=== PATIENT | male | born 1975 | race Caucasian/White ===

== ENCOUNTER 2016-03-15 12:25 | Emergency (ER) | payer MEDICAID, OTHER ==
[~2016-03-15] VITALS: Ht 172.7 cm; Wt 79.5 kg
[~2016-03-15 12:25] MED LIST: INSU100V19
[2016-03-15 12:34] VITALS: Ht 172.7 cm; Wt 79.5 kg
[2016-03-15] MEDS ORDERED: SOD CHLORIDE 0.9% 1,000 ML IV STA (13:29)
[2016-03-15] MEDS ORDERED: LIDOCAINE/MYLANTA 40 ML BTL PO ONE (13:30)
--- NOTE | 2016-03-15 14:02 | RADRPT ---
PROCEDURE: XR Chest. CLINICAL INDICATION: chest pain, abdominal pain TECHNIQUE: Single frontal view of the chest was obtained COMPARISON: 03/15/2009 FINDINGS: The heart and mediastinum are within normal limits. The lungs are clear. There is no pleural effusion or pneumothorax. RPTAT: AA IMPRESSION: No acute disease. .Esteban Johnston MD, MD Date Time Electronically viewed and signed by .Esteban Johnston MD, on 03/15/2016 14:01 .S/
[2016-03-15] MEDS: FAMOTIDINE 20 MG INJ IV STA ×2 (14:03→14:04)
[2016-03-15 14:24] LABS: ADD UMIC YES; URINE BILIRUBIN (Dip) NEGATIVE (NEGATIVE); URINE BLOOD (Dip) TRACE (NEGATIVE); URINE COLOR LT. YELLOW (YELLOW); URINE GLUCOSE (Dip) >=1000 % (NEGATIVE); URINE KETONES (Dip) NEGATIVE (NEGATIVE); URINE LEUKOCYTE ESTERASE (Dip) NEGATIVE (NEGATIVE); URINE NITRITE (Dip) NEGATIVE (NEGATIVE); URINE TOTAL PROTEIN (Dip) NEGATIVE (NEGATIVE); URINE UROBILINOGEN (Dip) 0.2 E.U./dL (0.1-1.0)
[2016-03-15 14:39] LABS: POTASSIUM 4.1 mmol/L (3.5-5.1)
[2016-03-15 14:41] LABS: BARBITURATES Negative (NEGATIVE); BENZODIAZEPINES Negative (NEGATIVE); CANNABINOIDS Negative (NEGATIVE); COCAINE Negative (NEGATIVE); OPIATES Negative (NEGATIVE)
[2016-03-15 14:41] LABS: BILIRUBIN,INDIRECT 0.6 mg/dl (0-1.1); BILIRUBIN,TOTAL 0.6 mg/dl (0.2-1.3); CREATININE 1.31 mg/dl (0.61-1.24)
[2016-03-15 14:42] LABS: ALBUMIN/GLOBULIN RATIO 1.21; CALCIUM 9.7 mg/dl (8.4-10.2); TOTAL PROTEIN 7.3 g/dl (6.1-8.1)
[2016-03-15 14:55] LABS: BASOPHILS % 0.6 % (0.0-2.0); EOSINOPHILS # 0.5 10^3/ul (0.0-0.5); EOSINOPHILS % 6.7 % (0.0-7.0); HEMATOCRIT 42.5 % (42.0-52.0); HEMOGLOBIN 14.6 g/dl (14.0-18.0); LYMPHOCYTES # 2.7 10^3/ul (0.8-2.9); MEAN CORPUSCULAR HEMOGLOBIN 30.4 pg (29.0-33.0); MEAN CORPUSCULAR HGB CONC 34.4 g/dl (32.0-37.0); MEAN CORPUSCULAR VOLUME 88.2 fl (82.0-101.0); MEAN PLATELET VOLUME 9.1 fl (7.4-10.4); MONOCYTE # 0.3 10^3/ul (0.3-0.9); MONOCYTES % 4.1 % (0.0-11.0); NEUTROPHIL # 4.1 10^3/ul (1.6-7.5); NEUTROPHILS % 53.6 % (39.0-77.0); PLATELET COUNT 186 10^3/UL (140-440); RED BLOOD COUNT 4.82 10^6/ul (4.70-6.10); RED CELL DISTRIBUTION WIDTH 12.8 % (11.5-14.5); UNCORRECTED WBC 7.7 10^3/ul (4.8-10.8); WHITE BLOOD COUNT 7.7 10^3/ul (4.8-10.8)
[2016-03-15 15:09] LABS: CONDITION 1
[2016-03-15] MEDS ORDERED: FAMO-18 PO (16:00)
[2016-03-15 16:05] VITALS: BP 112/59; PULSE 78; RESP 18; TEMP 98.5
[2016-03-15 16:20] LABS: SQUAMOUS EPITHELIAL CELL,UR OCCASIONAL; URINE RBCS 0-2 /HPF (0)
--- NOTE | 2016-03-15 21:57 | ERD ---
ER Documentation Chief Complaint Date/Time DATE: 03/15/16 TIME: 21:47 Chief Complaint HIGH BLOOD SUGAR YESTERDAY. HPI 40-year-old male with a past medical history of diabetes presents to the ED complaining of high blood sugar and was seen at [facility] yesterday. States that he was transferred over to [facility] but was not happy with the care, left AMA with an IV line in his left forearm, wanted to come here to [facility]. States that he started to have slight chest pain that started 2 days ago. States that he is unsure if this is his heartburn. Reports that he has a history of gastritis. Denies any shortness of breath, wheezing, fever, chills, cough, neck stiffness, abdominal pain, diarrhea. Reports normal bowel movements. ROS All systems reviewed and are negative except as per history of present illness. Medications Home Meds Active Scripts Famotidine* (Pepcid*) 20 Mg Tablet, 20 MG PO BID for 4 Days, #30 TAB Prov:WADE JETER PA-C 03/15/16 Reported Medications Insulin Glargine,Hum.rec.anlog (Lantus) 100 U/Ml Vial 03/15/09 Allergies Allergies: Coded Allergies: No Known Drug Allergy (Verified Allergy, Unknown, 03/16/09) PMhx/Soc History of Surgery: No Anesthesia Reaction: No Hx Neurological Disorder: No Hx Respiratory Disorders: No Hx Cardiac Disorders: No Hx Miscellaneous Medical Probl: Yes (DM) Hx Alcohol Use: Yes (PREVIOUS USER) Hx Substance Use: No Hx Tobacco Use: No Physical Exam Vitals Vital Signs Date Time Temp Pulse Resp B/P Pulse Ox O2 Delivery O2 Flow Rate FiO2 03/15/16 16:05 98.5 78 18 112/59 98 03/15/16 12:34 98.1 112 18 102/64 98 Physical Exam Const: [id number], well-nourished. In no acute distress. Head: Atraumatic, normocephalic Eyes: Normal Conjunctiva without injection. No purulent discharge. ENT: Normal external ear, nose. Moist oropharynx without tonsillar exudates. Non -erythematous pharynx. Uvula midline. No drooling. No trismus. Neck: No cervical midline tenderness. Full range of motion. No meningismus. No cervical lymphadenopathy. No JVD. Resp: Clear to auscultation bilaterally. No wheezing, rhonchi, rales, or crackles. No accessory muscle use. No retractions. Cardio: Regular rate and rhythm. No murmurs, rubs or gallops. Abd: Soft, nontender to palpation, non distended. Normal bowel sounds. No palpable masses. No rebound tenderness. No guarding. Negative McBurney's point. Negative psoas sign. Negative obturator sign. : See exam in MDM. Skin: No petechiae or rashes Back: No midline tenderness. No CVA tenderness. Ext: No cyanosis, or edema. Neur: Awake and alert. Normal gait. Normal coordination. Psych: Normal Mood and Affect Result Diagram: 03/15/16 1400 03/15/16 1400 Results 24 hrs Laboratory Tests Test 03/15/16 12:32 03/15/16 13:50 03/15/16 14:00 03/15/16 15:45 Bedside Glucose 317mg/dL 307mg/dL Urine Amphetamines Screen Negative Urine Barbiturates Negative Urine Benzodiazepines Screen Negative Urine Bilirubin NEGATIVE Urine Cannabinoids Negative Urine Clarity CLEAR Urine Cocaine Screen Negative Urine Color LT. YELLOW Urine Glucose >=1000% Urine Hemoglobin TRACE Urine Ketones NEGATIVE Urine Leukocyte Esterase NEGATIVE Urine Microscopic RBC 0-2/HPF Urine Microscopic WBC 0-2/HPF Urine Nitrite NEGATIVE Urine Opiates Screen Negative Urine Specific [place] 1.010 Urine Squamous Epithelial Cells OCCASIONAL Urine Total Protein NEGATIVE Urine Urobilinogen 0.2 E.U./dL Urine pH 6.0 Alanine Aminotransferase (ALT/SGPT) 58IU/L Albumin 4.0g/dl Albumin/Globulin Ratio 1.21 Alkaline Phosphatase 230IU/L Anion Gap 14 Aspartate Amino Transf (AST/SGOT) 54IU/L Basophils # 0.010^3/ul Basophils % 0.6% Blood Urea Nitrogen 37mg/dl Calcium Level 9.7mg/dl Carbon Dioxide Level 32mmol/L Chloride Level 99mmol/L Creatinine 1.31mg/dl Direct Bilirubin 0.00mg/dl Eosinophils # 0.510^3/ul Eosinophils % 6.7% Globulin 3.30g/dl Glucose Level 299mg/dl Hematocrit 42.5% Hemoglobin 14.6g/dl Indirect Bilirubin 0.6mg/dl Lipase 78U/L Lymphocytes # 2.710^3/ul Lymphocytes % 35.0% Mean Corpuscular Hemoglobin 30.4pg Mean Corpuscular Hemoglobin Concent 34.4g/dl Mean Corpuscular Volume 88.2fl Mean Platelet Volume 9.1fl Monocytes # 0.310^3/ul Monocytes % 4.1% Neutrophils # 4.110^3/ul Neutrophils % 53.6% Nucleated Red Blood Cells # 0.010^3/ul Nucleated Red Blood Cells % 0.0/100WBC Platelet Count 89239^3/UL Potassium Level 4.1mmol/L Red Blood Count 4.8210^6/ul Red Cell Distribution Width 12.8% Sodium Level 141mmol/L Total Bilirubin 0.6mg/dl Total Protein 7.3g/dl Troponin I < 0.010ng/ml White Blood Count 7.710^3/ul Current Medications Medications (Trade) Dose Ordered Sig/Luc Route PRN Reason Start Time Stop Time Status Last Admin Dose Admin Sodium Chloride (NS) 1,000 ml @ 1,000 mls/hr Q1H STAT IV 03/15/16 13:29 03/15/16 14:28 DC 03/15/16 14:04 Famotidine (Pepcid Iv) 20 mg ONCE STAT IV 03/15/16 13:29 03/15/16 13:37 DC 03/15/16 14:04 Miscellaneous Medication (Gi Cocktail (2)) 40 ml ONCE ONCE PO 03/15/16 13:30 03/15/16 13:37 DC 03/15/16 14:04 Procedures/MDM 40-year-old male with a past medical history of diabetes presents the ED complaining of high blood sugar, chest pain. Patient is afebrile and nontoxic- appearing. At this time a CBC, CMP, lipase, UA, 1 L of normal saline was ordered to further treat and evaluate patient. Patient reports that his symptoms have improved after the 1 L of normal saline, famotidine 20 mg IV, GI cocktail. CBC: No leukocytosis. No e/o of systemic infection. No e/o anemia. CMP: No e/o severe acidosis, alkalosis, renal failure, diabetic ketoacidosis, liver disease Lipase within normal limits. Urine: No leukocyte esterase, no nitrites, no hematuria. No ketones noted. Troponin < 0.01 Negative Urine Drug Screen - no IV drug use after leaving [facility] with IV line. PROCEDURE: XR Chest. CLINICAL INDICATION: chest pain, abdominal pain TECHNIQUE: Single frontal view of the chest was obtained COMPARISON: 03/15/2009 FINDINGS: The heart and mediastinum are within normal limits. The lungs are clear. There is no pleural effusion or pneumothorax. RPTAT: AA IMPRESSION: No acute disease. EKG reviewed and interpreted by Dr. Bernal Rate/Rhythm: [103 bpm, Normal Sinus Rhythm] No ectopy, no ST elevations, normal axis. QRS, ST, T-waves: [No changes consistent w/ acute ischemia] Impression: [No evidence of ischemia or arrhythmia] Patient's blood sugar was noted to be 317 upon arrival, 299 after receiving fluids and 307 after eating here in the ED. No ketones noted in the urine. Bicarb and anion gap is within normal limits. Low suspicion for DKA, HHS, or other emergent conditions. Patient's chest sensation is likely due to his gastritis and heartburn. Low suspicion for acute myocardial infarction, pneumothorax, WPW, pericarditis, Brugada's Syndrome, pneumonia, cardiac tamponade, pulmonary embolism, AAA, aortic dissection, Boerhaave's syndrome, cardiac dysrhythmias,meningitis, intracranial bleed, seizure, stroke, TIA or other emergent conditions. Discharge medications: Famotidine Follow up with primary care physician in 1-2 days. Instructed patient to return to the ED sooner for any worsening symptoms. Patient's questions were answered. Patient understood and agreed with discharge plan. Patient discharged stable. Departure Diagnosis: Primary Impression: Hyperglycemia Additional Impression: Heartburn Condition: Stable Patient Instructions: Hyperglycemia (High Blood Sugar), What Is Acid Reflux? Referrals: [facility] YOU HAVE RECEIVED A MEDICAL SCREENING EXAM AND THE RESULTS INDICATE THAT YOU DO NOT HAVE A CONDITION THAT REQUIRES URGENT TREATMENT IN THE EMERGENCY DEPARTMENT. FURTHER EVALUATION AND TREATMENT OF YOUR CONDITION CAN WAIT UNTIL YOU ARE SEEN IN YOUR DOCTORS OFFICE WITHIN THE NEXT 1-2 DAYS. IT IS YOUR RESPONSIBILITY TO MAKE AN APPOINTMENT FOR FOLOW-UP CARE. IF YOU HAVE A PRIMARY DOCTOR --you should call your primary doctor and schedule an appointment IF YOU DO NOT HAVE A PRIMARY DOCTOR YOU CAN CALL OUR PHYSICIAN REFERRAL HOTLINE AT IF YOU CAN NOT AFFORD TO SEE A PHYSICIAN YOU CAN CHOSE FROM THE FOLLOWING [facility] [address] [facility] [address] [facility] [address] [facility] [address] [facility] [address] [facility]. [facility] [address] [facility]. [facility] YOU HAVE RECEIVED A MEDICAL SCREENING EXAM AND THE RESULTS INDICATE THAT YOU DO NOT HAVE A CONDITION THAT REQUIRES URGENT TREATMENT IN THE EMERGENCY DEPARTMENT. FURTHER EVALUATION AND TREATMENT OF YOUR CONDITION CAN WAIT UNTIL YOU ARE SEEN IN YOUR DOCTORS OFFICE WITHIN THE NEXT 1-2 DAYS. IT IS YOUR RESPONSIBILITY TO MAKE AN APPOINTMENT FOR FOLOW-UP CARE. IF YOU HAVE A PRIMARY DOCTOR --you should call your primary doctor and schedule and appointment IF YOU DO NOT HAVE A PRIMARY DOCTOR YOU CAN CALL OUR PHYSICIAN REFERRAL HOTLINE AT . IF YOU CAN NOT AFFORD TO SEE A PHYSICIAN YOU CAN CHOSE FROM THE FOLLOWING [facility] INSTITUTIONS: [facility] [address] [place] [address] [facility] [address] [place] [address] [facility] + [facility] [address] [place] [address] [facility] URGENT CARE/SPECIALTIES Additional Instructions: FOLLOW UP WITH YOUR PRIMARY CARE PHYSICIAN TOMORROW. Return to this facility if you are not improving as expected. WADE JETER PA-C Mar 15, 2016 21:56
== END 2016-03-15 16:06 | disposition home or self-care (01) ==
LOC: FTE 12:25
DX: E11.65 Type 2 diabetes mellitus with hyperglycemia (principal); R12 Heartburn; Z79.4 Long term (current) use of insulin
CPT/HCPCS: 36415; 71010; 80053; 80307; 81001; 82962; 83690; 84484; 85025; 93005; 96374; J7030; Z7502; Z7610; 81003

== ENCOUNTER 2016-04-27 13:54 | Emergency (ER) | payer MEDICAID, OTHER ==
[~2016-04-27] VITALS: Wt 67.5 kg
[~2016-04-27 13:54] MED LIST changes: +FAMO-18 PO
[2016-04-27] MEDS ORDERED: SOD CHLORIDE 0.9% 1,000 ML IV STA (14:18)
[2016-04-27] MEDS ORDERED: DICLOFENAC SODIUM 37.5 MG/ML VIAL IV STA ×2 (14:18→16:48)
--- NOTE | 2016-04-27 14:58 | RADRPT ---
PROCEDURE: XR Chest. CLINICAL INDICATION: Abdominal pain TECHNIQUE: Chest AP portable. COMPARISON: No comparison available. FINDINGS: The mediastinal structures are unremarkable. The heart is normal in size and configuration. The pu lmonary vascularity is normal. The lung butler are unremarkable. No consolidation is identified. The pleural spaces are unremarkable. The axial skeleton is unremarkable. IMPRESSION: No active intrathoracic disease. RPTAT: HGDB .Miguelangel Moreno MD, MD Date Time Electronically viewed and signed by .Miguelangel Moreno MD, MD on 04/27/2016 14:58 .B/
[2016-04-27] MEDS ORDERED: SOD CHLORIDE 0.9% 1,000 ML IV ONE ×2 (15:00→16:30)
[2016-04-27 15:05] LABS: BASOPHILS % 0.4 % (0.0-2.0); EOSINOPHILS # 0.1 10^3/ul (0.0-0.5); EOSINOPHILS % 1.6 % (0.0-7.0); HEMATOCRIT 45.7 % (42.0-52.0); HEMOGLOBIN 15.7 g/dl (14.0-18.0); LYMPHOCYTES # 1.2 10^3/ul (0.8-2.9); MEAN CORPUSCULAR HEMOGLOBIN 30.6 pg (29.0-33.0); MEAN CORPUSCULAR HGB CONC 34.3 g/dl (32.0-37.0); MEAN CORPUSCULAR VOLUME 89.4 fl (82.0-101.0); MEAN PLATELET VOLUME 9.7 fl (7.4-10.4); MONOCYTE # 0.6 10^3/ul (0.3-0.9); MONOCYTES % 10.5 % (0.0-11.0); NEUTROPHIL # 3.9 10^3/ul (1.6-7.5); NEUTROPHILS % 66.5 % (39.0-77.0); PLATELET COUNT 107 10^3/UL (140-440); RED BLOOD COUNT 5.11 10^6/ul (4.70-6.10); RED CELL DISTRIBUTION WIDTH 12.1 % (11.5-14.5); UNCORRECTED WBC 5.8 10^3/ul (4.8-10.8); WHITE BLOOD COUNT 5.8 10^3/ul (4.8-10.8)
[2016-04-27 15:09] LABS: CONDITION 1
[2016-04-27 15:10] LABS: ADD UMIC YES; URINE BILIRUBIN (Dip) NEGATIVE (NEGATIVE); URINE BLOOD (Dip) 1+ (NEGATIVE); URINE COLOR LT. YELLOW (YELLOW); URINE GLUCOSE (Dip) >=1000 % (NEGATIVE); URINE KETONES (Dip) NEGATIVE (NEGATIVE); URINE LEUKOCYTE ESTERASE (Dip) NEGATIVE (NEGATIVE); URINE NITRITE (Dip) NEGATIVE (NEGATIVE); URINE TOTAL PROTEIN (Dip) NEGATIVE (NEGATIVE); URINE UROBILINOGEN (Dip) 0.2 E.U./dL (0.1-1.0)
[2016-04-27 15:14] LABS: ALBUMIN 3.5 g/dl (3.3-4.9); CHLORIDE 89 mmol/L (97-110); SODIUM 131 mmol/L (135-144)
[2016-04-27 15:15] LABS: POTASSIUM 4.7 mmol/L (3.5-5.1)
[2016-04-27 15:16] LABS: CREATININE 1.79 mg/dl (0.61-1.24)
[2016-04-27 15:17] LABS: ALANINE AMINOTRANSFERASE 58 IU/L (13-69); ALBUMIN/GLOBULIN RATIO 1.34; ALKALINE PHOSPHATASE 257 IU/L (42-121); ANION GAP 18 (8-16); ASPARTATE AMINO TRANSFERASE 32 IU/L (15-46); BILIRUBIN,INDIRECT 0.4 mg/dl (0-1.1); BILIRUBIN,TOTAL 0.4 mg/dl (0.2-1.3); BLOOD UREA NITROGEN 36 mg/dl (7-20); CALCIUM 8.8 mg/dl (8.4-10.2); CARBON DIOXIDE 29 mmol/L (21-31); TOTAL PROTEIN 6.1 g/dl (6.1-8.1)
[2016-04-27 15:30] LABS: GLUCOSE 622 mg/dl (70-220)
[2016-04-27 15:31] LABS: TROPONIN-I < 0.012 ng/ml (0.00-0.12)
[2016-04-27] MEDS ORDERED: INSULIN LISPRO 100 UNIT/ML VIAL SC STA (16:29)
[2016-04-27] MEDS ORDERED: ONDANSETRON 4 MG INJ IV STA (16:48)
[2016-04-27 18:06] VITALS: BP 116/77; PULSE 104; RESP 18; TEMP 98.6
[2016-04-27] MEDS ORDERED: LANT3I SC (18:14)
[2016-04-27] MEDS ORDERED: NAPR-688 PO (18:14)
[2016-04-27] MEDS ORDERED: ONDA4TAB11 PO (18:14)
--- NOTE | 2016-04-27 18:45 | ERD ---
ER Documentation Chief Complaint Date/Time DATE: 04/27/16 TIME: 18:32 Chief Complaint DIZZINESS, BODYACHES, ELEVATED BLOOD SUGAR HPI 40-year-old male presents for diarrhea, body aches, feeling lightheaded and having elevated blood sugar. His symptoms been going on for the last couple of days. Denies chest pain shortness of breath and cough. Denies any specific fevers. States that he did not take his Lantus insulin last night or this morning because he felt sick. Does admit to drinking alcohol occasionally for stress. Has not drank any alcohol today. ROS All systems reviewed and are negative except as per history of present illness. Medications Home Meds Active Scripts Naproxen* (Naproxen*) 500 Mg Tablet, 500 MG PO BID Y for q6, #20 TAB Prov:SARA SANTIAGO DO 04/27/16 Insulin Glargine* (Lantus*) 100 Unit/Ml Soln, 25 UNIT SC QHS, #1 VIAL Prov:SARA SANTIAGO DO 04/27/16 Ondansetron (Zofran Odt) 4 Mg Tab.rapdis, 4 MG PO Q6, #10 Prov:SARA SANTIAGO DO 04/27/16 Famotidine* (Pepcid*) 20 Mg Tablet, 20 MG PO BID for 4 Days, #30 TAB Prov:WADE JETER PA-C 03/15/16 Reported Medications Insulin Glargine,Hum.rec.anlog (Lantus) 100 U/Ml Vial 03/15/09 Allergies Allergies: Coded Allergies: No Known Drug Allergy (Verified Allergy, Unknown, 03/16/09) PMhx/Soc History of Surgery: No Anesthesia Reaction: No Hx Neurological Disorder: No Hx Respiratory Disorders: No Hx Cardiac Disorders: No Hx Psychiatric Problems: No Hx Miscellaneous Medical Probl: Yes (DM) Hx Alcohol Use: Yes (OOC) Hx Substance Use: No (PREVIOUS USER) Hx Tobacco Use: No Smoking Status: Never smoker Physical Exam Vitals Vital Signs Date Time Temp Pulse Resp B/P Pulse Ox O2 Delivery O2 Flow Rate FiO2 04/27/16 18:06 98.6 104 18 116/77 99 Room Air 04/27/16 16:30 98.4 101 18 140/93 98 04/27/16 14:09 97.6 103 18 121/57 98 Physical Exam Const: [] Head: Atraumatic Eyes: Normal Conjunctiva ENT: Normal External Ears, Nose and Mouth. Neck: Full range of motion..~ No meningismus. Resp: Clear to auscultation bilaterally Cardio: Regular rate and rhythm, no murmurs Abd: Soft, non tender, non distended. Normal bowel sounds Skin: No petechiae or rashes Back: No midline or flank tenderness Ext: No cyanosis, or edema Neur: Awake and alert Psych: Normal Mood and Affect Result Diagram: 04/27/16 1430 04/27/16 1430 Results 24 hrs Laboratory Tests Test 04/27/16 14:06 04/27/16 14:28 04/27/16 14:30 04/27/16 16:07 Bedside Glucose 590mg/dL > 595mg/dL 423mg/dL Alanine Aminotransferase (ALT/SGPT) 58IU/L Albumin 3.5g/dl Albumin/Globulin Ratio 1.34 Alkaline Phosphatase 257IU/L Anion Gap 18 Aspartate Amino Transf (AST/SGOT) 32IU/L Basophils # 0.010^3/ul Basophils % 0.4% Blood Urea Nitrogen 36mg/dl Calcium Level 8.8mg/dl Carbon Dioxide Level 29mmol/L Chloride Level 89mmol/L Creatinine 1.79mg/dl Direct Bilirubin 0.00mg/dl Eosinophils # 0.110^3/ul Eosinophils % 1.6% Globulin 2.60g/dl Glucose Level 622mg/dl Hematocrit 45.7% Hemoglobin 15.7g/dl Indirect Bilirubin 0.4mg/dl Lactic Acid Level 1.7mmol/L Lipase 87U/L Lymphocytes # 1.210^3/ul Lymphocytes % 21.0% Mean Corpuscular Hemoglobin 30.6pg Mean Corpuscular Hemoglobin Concent 34.3g/dl Mean Corpuscular Volume 89.4fl Mean Platelet Volume 9.7fl Monocytes # 0.610^3/ul Monocytes % 10.5% Neutrophils # 3.910^3/ul Neutrophils % 66.5% Nucleated Red Blood Cells # 0.010^3/ul Nucleated Red Blood Cells % 0.0/100WBC Platelet Count 73676^3/UL Potassium Level 4.7mmol/L Red Blood Count 5.1110^6/ul Red Cell Distribution Width 12.1% Sodium Level 131mmol/L Total Bilirubin 0.4mg/dl Total Protein 6.1g/dl Troponin I < 0.012ng/ml Urine Bilirubin NEGATIVE Urine Clarity CLEAR Urine Color LT. YELLOW Urine Glucose >=1000% Urine Hemoglobin 1+ Urine Ketones NEGATIVE Urine Leukocyte Esterase NEGATIVE Urine Microscopic RBC 2-5/HPF Urine Microscopic WBC 0-2/HPF Urine Nitrite NEGATIVE Urine Specific [place] <=1.005 Urine Total Protein NEGATIVE Urine Urobilinogen 0.2 E.U./dL Urine pH 6.0 White Blood Count 5.810^3/ul Test 04/27/16 17:53 Bedside Glucose 325mg/dL Current Medications Medications (Trade) Dose Ordered Sig/Luc Route PRN Reason Start Time Stop Time Status Last Admin Dose Admin Sodium Chloride (NS) 1,000 ml @ 1,000 mls/hr Q1H STAT IV 04/27/16 14:18 04/27/16 15:17 DC 04/27/16 14:47 Diclofenac Sodium 37.5 mg 37.5 mg ONCE STAT IV 04/27/16 14:18 04/27/16 14:21 DC Sodium Chloride 1,000 ml @ 1,000 mls/hr Q1H ONCE IV 04/27/16 15:00 04/27/16 15:59 DC 04/27/16 15:10 Sodium Chloride (NS) 1,000 ml @ 1,000 mls/hr Q1H ONCE IV 04/27/16 16:30 04/27/16 17:29 DC 04/27/16 16:44 Insulin Human Lispro (Humalog) 5 unit ONCE STAT SC 04/27/16 16:29 04/27/16 16:30 DC 04/27/16 16:37 Diclofenac Sodium (Dyloject) 37.5 mg ONCE STAT IV 04/27/16 16:48 04/27/16 16:50 DC 04/27/16 16:56 Ondansetron HCl (Zofran Inj) 4 mg ONCE STAT IV 04/27/16 16:48 04/27/16 16:50 DC 04/27/16 16:55 Procedures/MDM Patient with symptoms of viral syndrome including diarrhea and body aches with hyperglycemia secondary to not taking his medication. He was given 3 L of normal saline in the emergency room initial orders sugar easily. Is also given subcu lispro. Patient has no signs of diabetic ketoacidosis infection symptoms of dehydration and contraction alkalosis. Patient's creatinine is 0.5 higher than on previous measurement secondary to dehydration. Pseudohyponatremia is present as well. Patient is feeling better after the IV hydration. He is also given a dilated duct which resolved his body aches. Patient requests a refill for his glucose test strips. No signs of meningitis, no meningismus. Patient is afebrile with normal white blood cell count. Does have mild thrombocytopenia without any bleeding. I am going to discharge him with naproxen, Zofran so the patient can continue to hydrate himself if he develops any nausea. Also given a prescription for glucose test strips and for his Lantus insulin which he says he is running low on. I stressed that he needs to see his primary care doctor within the next couple of days. Return precautions to the ER given. Departure Diagnosis: Primary Impression: Dehydration Additional Impressions: Diarrhea Hyperglycemia Viral syndrome Condition: Stable Patient Instructions: Hyperglycemia (High Blood Sugar), Self-Care for Vomiting and Diarrhea Additional Instructions: Call your primary care doctor TOMORROW for an appointment during the next 1-2 days.See the doctor sooner or return here if your condition worsens before your appointment time. SARA SANTIAGO DO Apr 27, 2016 18:42
== END 2016-04-27 18:34 | disposition home or self-care (01) ==
LOC: E/R 13:54
DX: E86.0 Dehydration (principal); R19.7 Diarrhea, unspecified; B34.9 Viral infection, unspecified; E11.65 Type 2 diabetes mellitus with hyperglycemia; R11.10 Vomiting, unspecified; Z79.4 Long term (current) use of insulin
CPT/HCPCS: 36415; 71010; 80053; 81001; 82962; 83605; 83690; 84484; 85025; 96361; 96372; 96374; 96375; J1815; J2405; J7030; Z7502; Z7610; 81003

== ENCOUNTER 2016-04-28 19:05 | Emergency (ER) | payer OTHER ==
[~2016-04-28] VITALS: Ht 180.3 cm; Wt 68.9 kg
[~2016-04-28 19:05] MED LIST changes: +LANT3I SC; +NAPR-688 PO; +ONDA4TAB11 PO
[2016-04-28 19:36] VITALS: Ht 180.3 cm; Wt 68.9 kg
[2016-04-28] MEDS ORDERED: DICLOFENAC SODIUM 37.5 MG/ML VIAL IV STA (20:30)
[2016-04-28] MEDS ORDERED: SOD CHLORIDE 0.9% 1,000 ML IV STA (20:30)
[2016-04-28 21:36] LABS: BASOPHILS % 0.5 % (0.0-2.0); EOSINOPHILS # 0.2 10^3/ul (0.0-0.5); EOSINOPHILS % 4.1 % (0.0-7.0); HEMATOCRIT 43.4 % (42.0-52.0); LYMPHOCYTES # 1.9 10^3/ul (0.8-2.9); LYMPHOCYTES % 34.1 % (15.0-51.0); MEAN CORPUSCULAR HEMOGLOBIN 30.5 pg (29.0-33.0); MEAN CORPUSCULAR HGB CONC 34.6 g/dl (32.0-37.0); MEAN CORPUSCULAR VOLUME 88.1 fl (82.0-101.0); MEAN PLATELET VOLUME 9.6 fl (7.4-10.4); MONOCYTE # 0.5 10^3/ul (0.3-0.9); MONOCYTES % 8.8 % (0.0-11.0); NEUTROPHIL # 2.9 10^3/ul (1.6-7.5); NEUTROPHILS % 52.5 % (39.0-77.0); PLATELET COUNT 119 10^3/UL (140-440); RED BLOOD COUNT 4.93 10^6/ul (4.70-6.10); RED CELL DISTRIBUTION WIDTH 12.3 % (11.5-14.5); UNCORRECTED WBC 5.5 10^3/ul (4.8-10.8); WHITE BLOOD COUNT 5.5 10^3/ul (4.8-10.8)
[2016-04-28 21:37] LABS: ADD UMIC YES; URINE BILIRUBIN (Dip) NEGATIVE (NEGATIVE); URINE BLOOD (Dip) 1+ (NEGATIVE); URINE COLOR LT. YELLOW (YELLOW); URINE GLUCOSE (Dip) >=1000 % (NEGATIVE); URINE KETONES (Dip) 15 (NEGATIVE); URINE LEUKOCYTE ESTERASE (Dip) NEGATIVE (NEGATIVE); URINE NITRITE (Dip) NEGATIVE (NEGATIVE); URINE TOTAL PROTEIN (Dip) NEGATIVE (NEGATIVE); URINE UROBILINOGEN (Dip) 0.2 E.U./dL (0.1-1.0)
[2016-04-28 21:39] LABS: ALBUMIN 4.2 g/dl (3.3-4.9); CONDITION 1
[2016-04-28 21:40] LABS: POTASSIUM 4.7 mmol/L (3.5-5.1)
[2016-04-28 21:42] LABS: ALBUMIN/GLOBULIN RATIO 1.4; BILIRUBIN,INDIRECT 0.4 mg/dl (0-1.1); BILIRUBIN,TOTAL 0.4 mg/dl (0.2-1.3); CREATININE 1.49 mg/dl (0.61-1.24); TOTAL PROTEIN 7.2 g/dl (6.1-8.1)
[2016-04-28 21:43] LABS: CALCIUM 9.4 mg/dl (8.4-10.2)
[2016-04-28 21:46] LABS: BACTERIA,URINE FEW
[2016-04-28] MEDS ORDERED: LIDOCAINE/MYLANTA 40 ML BTL PO ONE (22:00)
--- NOTE | 2016-04-28 22:41 | ERD ---
ER Documentation Chief Complaint Date/Time DATE: 04/28/16 TIME: 22:40 Chief Complaint gen body aches, dizzy, also c/o right lower leg pain HPI This is a 40-year-old male who presents to the emergency department today complaining of fever last night, headache, dizziness and feeling weak. Patient was here yesterday but did not supervisor opening and picking his medication for his diabetes. Patient states he does not have anybody to help him supervisor opening and picking his medications. Patient states "I have so many problems right now" patient states that he has burning in his stomach but denies any pain. ROS All systems reviewed and are negative except as per history of present illness. Medications Home Meds Active Scripts Naproxen* (Naproxen*) 500 Mg Tablet, 500 MG PO BID Y for q6, #20 TAB Prov:SARA SANTIAGO DO 04/27/16 Insulin Glargine* (Lantus*) 100 Unit/Ml Soln, 25 UNIT SC QHS, #1 VIAL Prov:PAMELASARA DO 04/27/16 Ondansetron (Zofran Odt) 4 Mg Tab.rapdis, 4 MG PO Q6, #10 Prov:SARA SANTIAGO DO 04/27/16 Famotidine* (Pepcid*) 20 Mg Tablet, 20 MG PO BID for 4 Days, #30 TAB Prov:WADE JETER PA-C 03/15/16 Reported Medications Insulin Glargine,Hum.rec.anlog (Lantus) 100 U/Ml Vial 03/15/09 Allergies Allergies: Coded Allergies: No Known Drug Allergy (Verified Allergy, Unknown, 04/28/16) PMhx/Soc History of Surgery: No Anesthesia Reaction: No Hx Neurological Disorder: No Hx Respiratory Disorders: No Hx Cardiac Disorders: No Hx Psychiatric Problems: No Hx Miscellaneous Medical Probl: Yes (DM) Hx Alcohol Use: Yes (OOC) Hx Substance Use: No (PREVIOUS USER) Hx Tobacco Use: No Physical Exam Vitals Vital Signs Date Time Temp Pulse Resp B/P Pulse Ox O2 Delivery O2 Flow Rate FiO2 04/28/16 19:36 98.6 110 20 103/67 98 Physical Exam Const: No acute distress Head: Atraumatic Eyes: Normal Conjunctiva ENT: Normal External Ears, Nose and Mouth. Neck: Full range of motion..~ No meningismus. Resp: Clear to auscultation bilaterally Cardio: Regular rate and rhythm, no murmurs Abd: Soft, non tender, non distended. Normal bowel sounds Skin: No petechiae or rashes Back: No midline or flank tenderness Ext: No cyanosis, or edema Neur: Awake and alert Psych: Normal Mood and Affect Result Diagram: 04/28/16210704/28/162107 Results 24 hrs Laboratory Tests Test 04/28/16 21:00 04/28/16 21:08 Urine Bacteria FEW Urine Bilirubin NEGATIVE Urine Clarity CLEAR Urine Color LT. YELLOW Urine Epithelial Cells OCCASIONAL Urine Glucose >=1000% Urine Hemoglobin 1+ Urine Ketones 15 Urine Leukocyte Esterase NEGATIVE Urine Microscopic RBC 5-10/HPF Urine Microscopic WBC NONE SEEN/HPF Urine Nitrite NEGATIVE Urine Specific [place] <=1.005 Urine Total Protein NEGATIVE Urine Urobilinogen 0.2 E.U./dL Urine pH 6.0 Alanine Aminotransferase (ALT/SGPT) 54IU/L Albumin 4.2g/dl Albumin/Globulin Ratio 1.40 Alkaline Phosphatase 290IU/L Anion Gap 19 Aspartate Amino Transf (AST/SGOT) 37IU/L Basophils # 0.010^3/ul Basophils % 0.5% Blood Urea Nitrogen 29mg/dl Calcium Level 9.4mg/dl Carbon Dioxide Level 29mmol/L Chloride Level 97mmol/L Creatinine 1.49mg/dl Direct Bilirubin 0.00mg/dl Eosinophils # 0.210^3/ul Eosinophils % 4.1% Globulin 3.00g/dl Glucose Level 375mg/dl Hematocrit 43.4% Hemoglobin 15.0g/dl Indirect Bilirubin 0.4mg/dl Lipase 82U/L Lymphocytes # 1.910^3/ul Lymphocytes % 34.1% Mean Corpuscular Hemoglobin 30.5pg Mean Corpuscular Hemoglobin Concent 34.6g/dl Mean Corpuscular Volume 88.1fl Mean Platelet Volume 9.6fl Monocytes # 0.510^3/ul Monocytes % 8.8% Neutrophils # 2.910^3/ul Neutrophils % 52.5% Nucleated Red Blood Cells # 0.010^3/ul Nucleated Red Blood Cells % 0.0/100WBC Platelet Count 56134^3/UL Potassium Level 4.7mmol/L Red Blood Count 4.9310^6/ul Red Cell Distribution Width 12.3% Sodium Level 140mmol/L Total Bilirubin 0.4mg/dl Total Protein 7.2g/dl White Blood Count 5.510^3/ul Current Medications Medications (Trade) Dose Ordered Sig/Luc Route PRN Reason Start Time Stop Time Status Last Admin Dose Admin Sodium Chloride (NS) 1,000 ml @ 1,000 mls/hr Q1H STAT IV 04/28/16 20:30 04/28/16 21:29 DC 04/28/16 21:27 Diclofenac Sodium (Dyloject) 37.5 mg ONCE STAT IV 04/28/16 20:30 04/28/16 20:35 DC 04/28/16 21:27 Miscellaneous Medication (Gi Cocktail (2)) 40 ml ONCE ONCE PO 04/28/16 22:00 04/28/16 22:01 DC 04/28/16 22:14 Procedures/MDM This is a 40-year-old male who presents to the emergency department today for fever, dizziness, weakness and headache and body aches. Patient was just seen here yesterday in the emergency department and had a full workup. Patient was diagnosed with symptoms of viral syndrome with hyperglycemia secondary to not taking his medication. Patient was given 3 L of normal saline last night. He was also given subcu lispro. Patient was not in DKA. Patient did not have an elevated white blood cell count. Patient did have mild thrombocytopenia without any bleeding. He was discharged home with Naprosyn, Zofran and glucose test strips for his Lantus insulin. Patient has the same complaints today. I did repeat laboratory work. Laboratory work shows no elevated white blood cell count. He is not anemic. His platelets are decreased without any bleeding. His electrolytes are within normal limits. His liver functions within normal limits. His lipase is within normal limits. His creatinine has decreased from yesterday down to 1.49. UA is negative for infection. Patient symptoms at this time most consistent with viral syndrome and hyperglycemia. He is afebrile and otherwise well-appearing. Patient was given IV fluids, Pepcid and dyloject here in the emergency department patient reported feeling much better. Patient does not require admission at this time. He is not in DKA. Dr. Santiago has seen and evaluated the patient and both Dr. Santiago and I discussed again with the patient the importance of picking up his medications. The patient will not be discharged home with any medications as he states he does still have his prescription that he was prescribed yesterday. Patient was instructed to control his blood sugar. Patient understood. At this time the patient is stable for discharge and outpatient management. Patient should follow up with their PCP in the next 1-2 days. They may return to the emergency department sooner for any persistent or worsening of symptoms. Patient understood and agreed with the plan. Departure Diagnosis: Primary Impression: Viral syndrome Additional Impression: Hyperglycemia Condition: Fair DAREN BOWMAN PA-C Apr 28, 2016 22:41
[2016-04-28 23:21] VITALS: BP 112/70; PULSE 77; RESP 20; TEMP 98.3
== END 2016-04-28 23:22 | disposition home or self-care (01) ==
LOC: FTE 19:05
DX: B34.9 Viral infection, unspecified (principal); E11.65 Type 2 diabetes mellitus with hyperglycemia; Z79.4 Long term (current) use of insulin
CPT/HCPCS: 36415; 80053; 81001; 83690; 85025; 96374; J7030; Z7502; Z7610; 81003